=== PATIENT | male | born 1990 | race Caucasian/White ===

== ENCOUNTER 2019-07-04 08:53 | Emergency (ER) | payer OTHER ==
[~2019-07-04] VITALS: Ht 177.8 cm; Wt 77.1 kg
[~2019-07-04 08:53] MED LIST: MUCINEX D TABL1 EAC1 PO; NOHOMEMEDICATIONS; NORCO 5-325 TA1 EACH PO
[2019-07-04] MEDS ORDERED: MEDROLDOSEPACK PO (10:01)
[2019-07-04] MEDS ORDERED: MELOXICAM15 MG PO (10:01)
[2019-07-04 10:07] VITALS: BP 122/89
== END 2019-07-04 10:07 | disposition home or self-care (01) ==
LOC: M.ERS 08:53
DX: M21.331 Wrist drop, right wrist (principal)